=== PATIENT | male | born 1980 | race Caucasian/White ===

== ENCOUNTER 2020-03-06 21:13 | Emergency (ER) | payer SELFPAY ==
[~2020-03-06] VITALS: Ht 185.4 cm; Wt 68.0 kg
--- NOTE | 2020-03-06 21:25 | NUR ---
PT [id number]. AMBULATORY WITH STEADY GAIT. BIBSELF C/O DYSURIA +SMALL AMOUNT WHITE DISCHARGE, +ODOR, -HEMATURIA . PT PROVIDED URINE SAMPLE. AWAITING FOR MD FOR YESSY AND KAHLIL.
[2020-03-06] MEDS ORDERED: AZITHROMYCIN 250 MG TABLET ONE (21:48)
[2020-03-06] MEDS ORDERED: LIDOCAINE /MPF 1% VIAL 5 ML VIAL ONE (21:48)
[2020-03-06] MEDS ORDERED: CEFTRIAXONE 500 MG VIAL ONE (21:48)
[2020-03-06] MEDS ORDERED: AZITHROMYCIN 250 MG TABLET PO ONE (22:00)
[2020-03-06] MEDS ORDERED: CEFTRIAXONE 500 MG VIAL IM ONE (22:00)
[2020-03-06 22:10] VITALS: BP 131/69
--- NOTE | 2020-03-06 22:10 | NUR ---
Patient discharged to home in stable condition. Written and verbal after care instructions given. Patient verbalizes understanding of instruction. Pt ambulated with steady gait. vss.
[2020-03-06 22:37] LABS: BILIRUBIN,URINE NEGATIVE (NEGATIVE); BLOOD, URINE TRACE-INTA Ery/uL (NEGATIVE); COLOR,URINE YELLOW (YELLOW); LEUKOCYTE ESTERASE ,URINE MODERATE (NEGATIVE); NITRITE, URINE NEGATIVE (NEGATIVE); PROTEIN,URINE NEGATIVE (NEGATIVE); UGLUCOSE NEGATIVE (NEGATIVE); UROBILINOGEN,URINE 0.2 EU/dL (0.2)
[2020-03-06 22:48] LABS: BACTERIA,URINE 1+ /HPF (None Seen); SQUAMOUS EPITHELIAL CELL,UR Few /HPF (None Seen); WBC,URINE 21-50 /HPF (0-3)
== END 2020-03-06 22:10 | disposition home or self-care (01) ==
LOC: ER 21:13
DX: N34.2 Other urethritis (principal); R36.9 Urethral discharge, unspecified
CPT/HCPCS: 81001; 87086; 87491; 87591; 96372; 99283; J0696; J3490

== ENCOUNTER 2020-10-14 12:07 | Emergency (ER) | payer OTHER ==
[~2020-10-14] VITALS: Ht 185.4 cm; Wt 68.0 kg
[2020-10-14 12:12] VITALS: BP 116/65
[2020-10-14] MEDS ORDERED: DOXY100T2 PO (12:18)
[2020-10-14] MEDS ORDERED: CEFTRIAXONE 500 MG VIAL IM ONE (12:30)
[2020-10-14] MEDS ORDERED: CEFTRIAXONE 500 MG VIAL ONE (12:34)
[2020-10-14] MEDS ORDERED: LIDOCAINE /MPF 1% VIAL 5 ML VIAL ONE (12:34)
--- NOTE | 2020-10-14 12:43 | NUR ---
Patient discharged to home in stable condition. Written and verbal after care instructions given. Patient verbalizes understanding of instruction.
[2020-10-14 15:50] LABS: BILIRUBIN,URINE Negative (NEGATIVE); COLOR,URINE YELLOW (YELLOW); LEUKOCYTE ESTERASE ,URINE Moderate (NEGATIVE); NITRITE, URINE Negative (NEGATIVE); PROTEIN,URINE Negative (NEGATIVE); UGLUCOSE Negative (NEGATIVE); UROBILINOGEN,URINE 0.2 EU/dL (0.2)
[2020-10-14 15:59] LABS: BACTERIA,URINE Few /HPF (None Seen); MUCUS,URINE Few /LPF (None Seen); SQUAMOUS EPITHELIAL CELL,UR Few /HPF (None Seen)
== END 2020-10-14 12:43 | disposition home or self-care (01) ==
LOC: ER 12:13
DX: N34.2 Other urethritis (principal)
CPT/HCPCS: 81001; 87086; 87491; 87591; 96372; 99283; J0696; J3490